=== PATIENT | female | born 1975 | race Asian ===

== ENCOUNTER 2019-04-24 20:18 | Emergency (ER) | payer BC ==
[~2019-04-24] VITALS: Ht 154.9 cm; Wt 65.8 kg
--- NOTE | 2019-04-24 20:25 | NUR ---
ED Nurse Note: Pt walked in c/o difficulty breathing since 2209. [place] and felt a sudden onset of diffculty breathing. Pt stated she feels dizzy, light headed since 1 week ago. Pt stated hx of vertigo and getting over cold.
[2019-04-24 20:32] VITALS: BP 171/97
[2019-04-24] MEDS ORDERED: DiphenhydrAMINE 50mg/ml Inj IVP ONE (21:00)
[2019-04-24 21:21] LABS: BASOPHILS % (AUTO) 1.8 % (0.0-2.0); EOSINOPHILS % (AUTO) 1.9 % (0.0-3.0); HEMOGLOBIN 11.8 G/DL (12.0-16.0); LYMPHOCYTES % (AUTO) 32.6 % (20.0-45.0); MEAN CORPUSCULAR VOLUME 75 FL (80-99); MONOCYTES % (AUTO) 6.8 % (1.0-10.0); NEUTROPHILS % (AUTO) 56.9 % (45.0-75.0); PLATELET COUNT 275 K/UL (150-450); RED BLOOD COUNT 5.08 M/UL (4.20-5.40); RED CELL DISTRIBUTION WIDTH 14.9 % (11.6-14.8); WHITE BLOOD COUNT 5.6 K/UL (4.8-10.8)
[2019-04-24] MEDS ORDERED: Solu-MEDROL 125mg Inj IVP ONE (21:30)
[2019-04-24 21:34] LABS: INR 0.9 (0.9-1.1)
[2019-04-24 21:45] LABS: ALANINE AMINOTRANSFERASE 19 U/L (12-78); ALBUMIN 3.9 G/DL (3.4-5.0); ALBUMIN/GLOBULIN RATIO 0.9 (1.0-2.7); ALKALINE PHOSPHATASE 41 U/L (46-116); ANION GAP 11 mmol/L (5-15); ASPARTATE AMINO TRANSFERASE 16 U/L (15-37); BILIRUBIN,TOTAL 0.2 MG/DL (0.2-1.0); BLOOD UREA NITROGEN 7 mg/dL (7-18); CALCIUM 8.6 MG/DL (8.5-10.1); CARBON DIOXIDE 26 MMOL/L (21-32); CHLORIDE 102 MMOL/L (98-107); CREATININE 0.7 MG/DL (0.55-1.30); SODIUM 140 MMOL/L (136-145)
[2019-04-24 21:49] VITALS: BP 165/94
[2019-04-24 21:50] LABS: POTASSIUM 2.7 MMOL/L (3.5-5.1)
--- NOTE | 2019-04-24 22:11 | Emergency Room Report ---
History of Present Illness General Chief Complaint: Dyspnea/Respdistress Source: Patient Present Illness HPI Patient is a 44-year-old female presents after increased generalized chills and dizziness. Patient had acute onset of symptoms. She reports having increased spinning sensation. She denies any recent trauma. She reports having some generalized body aches. She denies any severe neck discomfort. She denies any diarrhea. She had prior history of oral contraceptive use.She reports having a recent negative ultrasound Allergies: Coded Allergies: PENICILLINS (Verified Allergy, Unknown, 04/24/19) Patient History Past Medical History: see triage record Last Menstrual Period: 02/2019 Now: No Reviewed Nursing Documentation: PMH: Agreed; PSxH: Agreed Nursing Documentation-PMH Hx Hypertension: Yes Review of Systems All Other Systems: negative except mentioned in HPI Physical Exam Vital Signs Date Time Temp Pulse Resp B/P (MAP) Pulse Ox O2 Delivery O2 Flow Rate FiO2 04/24/19 20:21 98.6 87 16 171/97 (121) 100 Room Air Sp02 EP Interpretation: reviewed, normal General Appearance: normal inspection, well appearing, no apparent distress, alert, GCS 15, non-toxic Head: atraumatic ENT: hearing grossly normal, normal voice, other - erythema and swelling bilaterally to ears and face mild Neck: normal inspection, full range of motion, supple, no bony tend Respiratory: normal inspection, lungs clear, normal breath sounds, no respiratory distress, no retraction, no wheezing Cardiovascular #1: regular rate, rhythm, no edema Gastrointestinal: normal inspection, normal bowel sounds, non tender, soft, no guarding, no hernia Genitourinary: no CVA tenderness Musculoskeletal: normal inspection, back normal, normal range of motion Neurologic: normal inspection, alert, oriented x3, responsive, 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 Differential diagnosis include was not limited to myocardial injury, electrolyte abnormality , dehydration, allergic reaction among others. Because of complexity of patient 's case laboratory tests and imaging studies were ordered. Patient was noted to have some initial facial rash along with generalized body aches. The patient appears to have some symptoms consistent with mild allergic reaction. Laboratory testing was notable for low potassium. Patient was given IV fluids as well oral potassium. EKG showed an normal sinus rhythm with a rate of [address] or T wave changes.Patient was given antiallergy medication with improvement in her symptoms. Patient does appear to have some evidence of allergic reaction. Patient is given prescription for medications for symptomatic treatment. She is advised to return if worse. Labs Test 04/24/19 21:00 White Blood Count 5.6 K/UL (4.8-10.8) Red Blood Count 5.08 M/UL (4.20-5.40) Hemoglobin 11.8 G/DL (12.0-16.0) Hematocrit 38.0 % (37.0-47.0) Mean Corpuscular Volume 75 FL (80-99) Mean Corpuscular Hemoglobin 23.3 PG (27.0-31.0) Mean Corpuscular Hemoglobin Concent 31.1 G/DL (32.0-36.0) Red Cell Distribution Width 14.9 % (11.6-14.8) Platelet Count 275 K/UL (150-450) Mean Platelet Volume 7.3 FL (6.5-10.1) Neutrophils (%) (Auto) 56.9 % (45.0-75.0) Lymphocytes (%) (Auto) 32.6 % (20.0-45.0) Monocytes (%) (Auto) 6.8 % (1.0-10.0) Eosinophils (%) (Auto) 1.9 % (0.0-3.0) Basophils (%) (Auto) 1.8 % (0.0-2.0) Prothrombin Time 9.3 SEC (9.30-11.50) Prothromb Time International Ratio 0.9 (0.9-1.1) Activated Partial Thromboplast Time 25 SEC (23-33) Sodium Level 140 MMOL/L (136-145) Potassium Level 2.7 MMOL/L (3.5-5.1) Chloride Level 102 MMOL/L (98-107) Carbon Dioxide Level 26 MMOL/L (21-32) Anion Gap 11 mmol/L (5-15) Blood Urea Nitrogen 7 mg/dL (7-18) Creatinine 0.7 MG/DL (0.55-1.30) Estimat Glomerular Filtration Rate > 60 mL/min (>60) Glucose Level 96 MG/DL (74-106) Calcium Level 8.6 MG/DL (8.5-10.1) Total Bilirubin 0.2 MG/DL (0.2-1.0) Aspartate Amino Transf (AST/SGOT) 16 U/L (15-37) Alanine Aminotransferase (ALT/SGPT) 19 U/L (12-78) Alkaline Phosphatase 41 U/L (46-116) Troponin I 0.000 ng/mL (0.000-0.056) Pro-B-Type Natriuretic Peptide 66 pg/mL (0-125) Total Protein 8.2 G/DL (6.4-8.2) Albumin 3.9 G/DL (3.4-5.0) Globulin 4.3 g/dL Albumin/Globulin Ratio 0.9 (1.0-2.7) Lipase 267 U/L (73-393) Last Vital Signs Date Time Temp Pulse Resp B/P (MAP) Pulse Ox O2 Delivery O2 Flow Rate FiO2 04/24/19 21:49 97.3 102 16 165/94 96 Room Air Status: improved Disposition: HOME, SELF-CARE Condition: Stable Scripts Potassium Chloride (POTASSIUM CHLORIDE) 10 Meq Tab.er.prt 10 MEQ PO DAILY, #30 TAB Prov: Paul Cifuentes MD 04/24/19 Diphenhydramine Hcl* (BENADRYL*) 25 Mg Capsule 25 MG ORAL Q6H PRN for Itching, #30 CAP Prov: Paul Cifuentes MD 04/24/19 Prednisone* (PREDNISONE*) 20 Mg Tablet 40 MG ORAL DAILY, #10 TAB Prov: Paul Cifuentes MD 04/24/19 Referrals: NON PHYSICIAN (PCP) Paul Cifuentes MD Apr 24, 2019 22:10
[2019-04-24] MEDS ORDERED: PREDNISONE20 MG ORAL (22:27)
[2019-04-24] MEDS ORDERED: BENADRYL25 MG ORAL (22:27)
[2019-04-24] MEDS ORDERED: POTASSIUM CHLO10 ME2 PO (22:29)
[2019-04-24 22:44] VITALS: BP 167/98
--- NOTE | 2019-04-24 22:44 | NUR ---
ER DISCHARGE NOTE: Patient is cleared to be discharged per ERMD, pt is aox4, on room air, with stable vital signs. pt was given dc and prescription instructions, pt was able to verbalize understanding, pt id band and iv site removed without complications. pt is able to ambulate with steady gait. pt took all belongings.
--- NOTE | 2019-04-25 13:09 | Diagnostic Imaging Report ---
Indication: Shortness of breath Technique: One view of the chest Comparison: none Findings: Lungs and pleural spaces are clear. Heart size is normal. Impression: No acute process
--- NOTE | 2019-04-27 15:36 | Cardiology Report ---
APPROVED REPORT EKG Measurement Heart [id number] Normal sinus rhythm Normal ECG
== END 2019-04-24 22:44 | disposition home or self-care (01) ==
LOC: EMR 20:53
DX: T78.40XA Allergy, unspecified, initial encounter (principal); X58.XXXA Exposure to other specified factors, initial encounter; E87.6 Hypokalemia; I10 Essential (primary) hypertension; Z88.0 Allergy status to penicillin
CPT/HCPCS: 36415; 71045; 80053; 83690; 83880; 84443; 84484; 85025; 85379; 85610; 85730; 93005; 96374; 96375; 99284; J1200; J2930; J7040; J8499

== ENCOUNTER 2019-08-17 03:46 | Emergency (ER) | payer BC ==
[~2019-08-17] VITALS: Ht 152.4 cm; Wt 68.0 kg
[~2019-08-17 03:46] MED LIST: BENADRYL25 MG ORAL; POTASSIUM CHLO10 ME2 PO; PREDNISONE20 MG ORAL
[2019-08-17 04:00] VITALS: BP 159/107
--- NOTE | 2019-08-17 04:00 | NUR ---
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 Pt did take clonidine prior to ED arrival. Pt BP upon ED triage is 159/107. Pt denies BENNETT, CP or SOB, but reports dizziness. pt is aaox4, no respiratory distress noted. Will continue to monitor.
[2019-08-17] MEDS ORDERED: CATAPRES0.1 MG ORAL (04:02)
[2019-08-17] MEDS ORDERED: AMLODIPINE BES2.5 MG ORAL (04:02)
[2019-08-17] MEDS ORDERED: OMEPRAZOLE20 M2 ORAL (04:02)
[2019-08-17 04:44] LABS: BASOPHILS % (AUTO) 1.8 % (0.0-2.0); EOSINOPHILS % (AUTO) 2.2 % (0.0-3.0); HEMATOCRIT 38.7 % (37.0-47.0); HEMOGLOBIN 13.1 G/DL (12.0-16.0); LYMPHOCYTES % (AUTO) 32.5 % (20.0-45.0); MEAN CORPUSCULAR VOLUME 88 FL (80-99); MONOCYTES % (AUTO) 7.5 % (1.0-10.0); PLATELET COUNT 236 K/UL (150-450); RED BLOOD COUNT 4.39 M/UL (4.20-5.40); RED CELL DISTRIBUTION WIDTH 12.5 % (11.6-14.8); WHITE BLOOD COUNT 5.6 K/UL (4.8-10.8)
[2019-08-17 04:52] LABS: APPEARANCE,URINE CLEAR; BILIRUBIN, URINE NEGATIVE (NEGATIVE); COLOR,URINE PALE YELLOW; GLUCOSE, URINE (UA) NEGATIVE (NEGATIVE); KETONES,URINE NEGATIVE (NEGATIVE); LEUKOCYTE ESTERASE ,URINE NEGATIVE (NEGATIVE); NITRITE,URINE NEGATIVE (NEGATIVE); PH,URINE 7 (4.5-8.0); PROTEIN,URINE NEGATIVE (NEGATIVE); UROBILINOGEN,URINE NORMAL MG/DL (0.0-1.0)
[2019-08-17 04:56] LABS: ANION GAP 11 mmol/L (5-15); BLOOD UREA NITROGEN 9 mg/dL (7-18); CALCIUM 9.5 MG/DL (8.5-10.1); CARBON DIOXIDE 25 MMOL/L (21-32); CHLORIDE 106 MMOL/L (98-107); CREATININE 0.7 MG/DL (0.55-1.30); SODIUM 142 MMOL/L (136-145)
[2019-08-17 05:08] LABS: ALANINE AMINOTRANSFERASE 29 U/L (12-78); ALBUMIN 3.5 G/DL (3.4-5.0); ALBUMIN/GLOBULIN RATIO 0.9 (1.0-2.7); ALKALINE PHOSPHATASE 51 U/L (46-116); ASPARTATE AMINO TRANSFERASE 16 U/L (15-37); BILIRUBIN,TOTAL 0.1 MG/DL (0.2-1.0)
[2019-08-17] MEDS ORDERED: FAMOTIDINE20 MG ORAL (05:19)
[2019-08-17 05:25] VITALS: BP 168/86
--- NOTE | 2019-08-17 06:27 | Emergency Room Report ---
History of Present Illness General Chief Complaint: Hypertension Source: Patient Present Illness HPI 44-year-old female presents ED for evaluation of high blood pressure. States that she checked her blood pressure at home and it was high. Took clonidine x2. States she has hypertension and takes Norvasc normally. States she was prescribed clonidine recently by her PMD as her blood pressures were getting higher. Notes headache or blurry vision. Denies chest pain but describes intermittent shortness of breath. Denies alcohol or drug use. No other aggravating relieving factors. Denies any other associated symptoms Allergies: Coded Allergies: PENICILLINS (Verified Allergy, Unknown, 04/24/19) Patient History Past Medical History: HTN Past Surgical History: none Pertinent Family History: none Social History: Denies: smoking, alcohol use, drug use Last Menstrual Period: 08/01/19 Now: No Immunizations: UTD Reviewed Nursing Documentation: PMH: Agreed; PSxH: Agreed Nursing Documentation-PMH Past Medical History: No History, Except For Hx Hypertension: Yes Review of Systems All Other Systems: negative except mentioned in HPI Physical Exam Vital Signs Date Time Temp Pulse Resp B/P (MAP) Pulse Ox O2 Delivery O2 Flow Rate FiO2 08/17/19 03:56 98.1 72 14 159/107 (124) 97 Room Air Sp02 EP Interpretation: reviewed, normal General Appearance: no apparent distress, alert, GCS 15, non-toxic Head: normocephalic, atraumatic Eyes: bilateral eye normal inspection, bilateral eye PERRL ENT: hearing grossly normal, normal pharynx, no angioedema, normal voice Neck: full range of motion, supple/symm/no masses Respiratory: chest non-tender, lungs clear, normal breath sounds, speaking full sentences Cardiovascular #1: regular rate, rhythm, no edema Cardiovascular #2: 2+ carotid (R), 2+ carotid (L), 2+ radial (R), 2+ radial (L) , 2+ dorsalis pedis (R), 2+ dorsalis pedis (L) Gastrointestinal: normal bowel sounds, non tender, soft, non-distended, no guarding, no rebound Rectal: deferred Genitourinary: normal inspection, no CVA tenderness Musculoskeletal: back normal, normal range of motion, gait/station normal, non- tender Neurologic: alert, motor strength/tone normal, oriented x3, sensory intact, responsive, speech normal Psychiatric: judgement/insight normal, memory normal, mood/affect normal, no suicidal/homicidal ideation Reflexes: 3+ bicep (R), 3+ bicep (L), 3+ tricep (R), 3+ tricep (L), 3+ knee (R) , 3+ knee (L) Lymphatic: no adenopathy Medical Decision Making Diagnostic Impression: Primary Impression: Gastritis Qualified Codes: K29.00 - Acute gastritis without bleeding Additional Impression: Hypertension Qualified Codes: I10 - Essential (primary) hypertension ER Course Hospital Course 44 yo F presents to ED c/o high BP, SOB Differential diagnoses include: hypertensive urgency, hypertensive emergency, arrythmia, PA/ACS Clinical course Patient placed on stretcher. After initial history and physical I ordered labs , EKG, chest x-ray. labs reviewed- all electrolytes normal, troponins negative, no leukocytosis, hemoglobin/hematocrit stable EKG - sinus bradycardia no acute ischemic changes interpreted by me Chest x-ray-no cardiomegaly, no rib fracture, no pneumothorax, no acute process During ED course patient's BP is slowly improving. I discussed findings with patient. Labs unremarkable. Exam within normal limits. Will discharge to home. I recommend closely tracking BP and documenting how anytime she requires clonidine. I explained that if she continues to require it on a regular basis she should discuss changing her BP med's with the PMD. She agrees. Safe for discharge for close outpatient follow-up I. I feel this is a highly complex case requiring extensive working including EKG/Rhythm strip, Xray/CT/US, Blood/urine lab work, repeat exams while in ED, and administration of strong opiates/narcotics for pain control, admission to hospital or close patient follow up. Diagnosis - hypertension, gastritis Stable and discharged to home with Rx Pepcid. Instructed to followup with PMD. Return to ED if symptoms recur or worsen Labs Test 08/17/19 04:20 White Blood Count 5.6 K/UL (4.8-10.8) Red Blood Count 4.39 M/UL (4.20-5.40) Hemoglobin 13.1 G/DL (12.0-16.0) Hematocrit 38.7 % (37.0-47.0) Mean Corpuscular Volume 88 FL (80-99) Mean Corpuscular Hemoglobin 29.9 PG (27.0-31.0) Mean Corpuscular Hemoglobin Concent 33.9 G/DL (32.0-36.0) Red Cell Distribution Width 12.5 % (11.6-14.8) Platelet Count 236 K/UL (150-450) Mean Platelet Volume 7.5 FL (6.5-10.1) Neutrophils (%) (Auto) 56.0 % (45.0-75.0) Lymphocytes (%) (Auto) 32.5 % (20.0-45.0) Monocytes (%) (Auto) 7.5 % (1.0-10.0) Eosinophils (%) (Auto) 2.2 % (0.0-3.0) Basophils (%) (Auto) 1.8 % (0.0-2.0) Urine Color Pale yellow Urine Appearance Clear Urine pH 7 (4.5-8.0) Urine Specific [place] 1.010 (1.005-1.035) Urine Protein Negative (NEGATIVE) Urine Glucose (UA) Negative (NEGATIVE) Urine Ketones Negative (NEGATIVE) Urine Blood 1+ (NEGATIVE) Urine Nitrite Negative (NEGATIVE) Urine Bilirubin Negative (NEGATIVE) Urine Urobilinogen Normal MG/DL (0.0-1.0) Urine Leukocyte Esterase Negative (NEGATIVE) Urine RBC 0-2 /HPF (0 - 2) Urine WBC 0-2 /HPF (0 - 2) Urine Squamous Epithelial Cells Occasional /LPF Urine Bacteria Occasional /HPF (NONE) Urine HCG, Qualitative Negative (NEGATIVE) Sodium Level 142 MMOL/L (136-145) Potassium Level 4.0 MMOL/L (3.5-5.1) Chloride Level 106 MMOL/L (98-107) Carbon Dioxide Level 25 MMOL/L (21-32) Anion Gap 11 mmol/L (5-15) Blood Urea Nitrogen 9 mg/dL (7-18) Creatinine 0.7 MG/DL (0.55-1.30) Estimat Glomerular Filtration Rate > 60 mL/min (>60) Glucose Level 123 MG/DL (74-106) Calcium Level 9.5 MG/DL (8.5-10.1) Total Bilirubin 0.1 MG/DL (0.2-1.0) Aspartate Amino Transf (AST/SGOT) 16 U/L (15-37) Alanine Aminotransferase (ALT/SGPT) 29 U/L (12-78) Alkaline Phosphatase 51 U/L (46-116) Troponin I 0.000 ng/mL (0.000-0.056) Pro-B-Type Natriuretic Peptide 233 pg/mL (0-125) Total Protein 7.5 G/DL (6.4-8.2) Albumin 3.5 G/DL (3.4-5.0) Globulin 4.0 g/dL Albumin/Globulin Ratio 0.9 (1.0-2.7) Lipase 300 U/L (73-393) EKG Diagnostic Results Rate: bradycardiac Rhythm: NSR ST Segments: no acute changes ASA given to the pt in ED: No Rhythm Strip Diag. Results EP Interpretation: yes Rhythm: NSR, no PVC's, no ectopy Chest X-Ray Diagnostic Results Chest X-Ray Diagnostic Results : Chest X-Ray Ordered: Yes # of Views/Limited/Complete: 1 View Indication: Chest Pain EP Interpretation: Yes Interpretation: no consolidation, no effusion, no pneumothorax, no acute cardiopulmonary disease Impression: No acute disease Electronically Signed by: Electronically signed by El Aviles MD Last Vital Signs Date Time Temp Pulse Resp B/P (MAP) Pulse Ox O2 Delivery O2 Flow Rate FiO2 08/17/19 05:25 98.1 75 16 168/86 99 Room Air Status: improved Disposition: HOME, SELF-CARE Condition: Stable Scripts Famotidine* (Pepcid 20mg tablet*) 20 Mg Tablet 20 MG ORAL DAILY, #30 TAB 0 Refills Prov: El Aviles MD 08/17/19 Patient Instructions: Hypertension, [id number] El Aviles MD Aug 17, 2019 06:27
--- NOTE | 2019-08-17 10:24 | Diagnostic Imaging Report ---
EXAM: XR Chest, 1 View CLINICAL HISTORY: CP TECHNIQUE: Frontal view of the chest. COMPARISON: Chest radiograph on 04/24/2019 FINDINGS: Hardware: None. Lungs/pleura: Low lung volumes with elevation of the right hemidiaphragm. Bibasilar atelectasis. No pleural effusion or pneumothorax. Heart/mediastinum: Mild enlargement of the cardiac silhouette which may be accentuated by low lung volumes. Soft tissues: Unremarkable. Bones: No acute fracture. Upper abdomen: Normal. IMPRESSION: Bibasilar atelectasis. No acute disease identified.
== END 2019-08-17 05:25 | disposition home or self-care (01) ==
LOC: EMR 04:30
DX: I10 Essential (primary) hypertension (principal); K29.00 Acute gastritis without bleeding; Z88.0 Allergy status to penicillin
CPT/HCPCS: 36415; 71045; 80053; 81003; 81025; 83690; 83880; 84484; 85025; 93005; 96361; 96374; 99284; J7030; S0028

== ENCOUNTER 2020-04-15 23:37 | Inpatient (IN) | payer BC ==
[~2020-04-15] VITALS: Ht 152.4 cm; Wt 65.9 kg
[~2020-04-15 23:37] MED LIST changes: +AMLODIPINE BES2.5 MG ORAL; +CATAPRES0.1 MG ORAL; +FAMOTIDINE20 MG ORAL; +OMEPRAZOLE20 M2 ORAL
[2020-04-15 23:47] VITALS: BP 153/84
--- NOTE | 2020-04-15 23:53 | Emergency Room Report ---
History of Present Illness General Chief Complaint: Abdominal Pain Source: Patient Present Illness HPI Disclaimer: Please note that this report is being documented using [employer] technology. This can lead to erroneous entry secondary to incorrect interpretation by the dictating instrument. HPI: 45-year-old female history of gastritis presents for evaluation of epigastric pain. Symptoms began approximately 5 PM. Patient was eating soup and rice. Reports a burning in the epigastrium does not radiate. Minimal tenderness in the right and left upper quadrant. One episode of vomiting that was nonbloody and nonbilious. Denies pain in the lower quadrants. She is currently experiencing menses but no significant cramping. Denies dysuria hematuria. Denies flank pain. Denies fever, chills, chest pain, shortness of breath, cough, URI symptoms or other changes in her health. She states she had a abdominal ultrasound 1 month ago showing cholelithiasis and solitary stone in the kidney. Denies history of abdominal surgery. Took a bicarbonate tablet prior to arrival without significant improvement. 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 EOMI. Cardiovascular: RRR. S1 and S2 normal. No murmur appreciated Resp: Normal work of breathing. No cough, wheezing or crackles appreciated Abdomen: Abdomen is soft, nondistended. Tender palpation in the epigastrium. No significant tenderness in the right or left upper quadrants. Negative Rodriguez's. No masses and no rebound. No periumbilical tenderness or tenderness in lower quadrants. No CVA tenderness. Skin: Intact. No abrasions, laceration or rash over the exposed skin MSK: Normal tone and bulk. Moving all extremities. No obvious deformity. Neuro: Awake and alert. Mentating appropriately. Procedures Critical Care Time Critical Care Time Total critical care time: Approximately 45 minutes Due to a high probability of clinically significant, life threatening deterioration, the patient required the highest level of preparedness to intervene emergently and I personally spent this critical care time directly and personally managing the patient. This critical care time included obtaining a history, examining the patient, pulse oximetry, ordering and reviewing studies, ordering treatments, evaluating response to treatment and updating management plan as needed, frequent reassessment and discussion with other providers as well as arranging for ultimate disposition. This critical to care time was performed to assess and manage the high probability of life-threatening deterioration that could result in multiorgan failure. This critical care time is separate from the separately billable procedures and treating other patients. Medical Decision Making Diagnostic Impression: Primary Impression: Cystitis Additional Impressions: Cholecystitis Hypokalemia ER Course Is a 45-year-old female presenting for evaluation of epigastric abdominal burning beginning approximately 5 PM. History of gastritis and cholelithiasis. Blood work showed hypokalemia though renal hepatic function were within normal limits. No evidence of pancreatitis. Patient was given IV and oral potassium. Urinalysis concerning for acute urinary tract infection. She received ceftriaxone. Patient had initial relief after pain medication antiemetics but then symptoms returned. A CT was obtained showing gallbladder wall thickening and pericholecystic fluid consistent with acalculous cholecystitis. Ultrasound did show gallstones and confirmed pericholecystic fluid and gallbladder wall thickening consistent with cholecystitis. CBD dilation was also noted. Patient will be admitted to panel physician, Dr. Golden, for further management of acute cholecystitis. She received potassium will continue to receive IV fluids. Kept n.p.o. for possible surgery. Laboratory Tests Test 04/15/20 23:55 04/16/20 00:20 White Blood Count 9.4 K/UL (4.8-10.8) Red Blood Count 5.20 M/UL (4.20-5.40) Hemoglobin 14.6 G/DL (12.0-16.0) Hematocrit 44.1 % (37.0-47.0) Mean Corpuscular Volume 85 FL (80-99) Mean Corpuscular Hemoglobin 28.1 PG (27.0-31.0) Mean Corpuscular Hemoglobin Concent 33.1 G/DL (32.0-36.0) Red Cell Distribution Width 18.8 % (11.6-14.8) H Platelet Count 258 K/UL (150-450) Mean Platelet Volume 7.7 FL (6.5-10.1) Neutrophils (%) (Auto) 77.4 % (45.0-75.0) H Lymphocytes (%) (Auto) 16.4 % (20.0-45.0) L Monocytes (%) (Auto) 4.6 % (1.0-10.0) Eosinophils (%) (Auto) 0.8 % (0.0-3.0) Basophils (%) (Auto) 0.9 % (0.0-2.0) Sodium Level 139 MMOL/L (136-145) Potassium Level 2.8 MMOL/L (3.5-5.1) L Chloride Level 99 MMOL/L (98-107) Carbon Dioxide Level 27 MMOL/L (21-32) Anion Gap 13 mmol/L (5-15) Blood Urea Nitrogen 10 mg/dL (7-18) Creatinine 1.0 MG/DL (0.55-1.30) Estimated Glomerular Filtration Rate 59.7 mL/min (>60) Glucose Level 138 MG/DL (74-106) H Calcium Level 9.1 MG/DL (8.5-10.1) Total Bilirubin 0.3 MG/DL (0.2-1.0) Aspartate Amino Transferase (AST) 18 U/L (15-37) Alanine Aminotransferase (ALT) 21 U/L (12-78) Alkaline Phosphatase 51 U/L (46-116) Total Protein 9.2 G/DL (6.4-8.2) H Albumin 4.6 G/DL (3.4-5.0) Globulin 4.6 g/dL Albumin/Globulin Ratio 1.0 (1.0-2.7) Lipase 237 U/L (73-393) Urine Color Red Urine Appearance Cloudy Urine pH 8 (4.5-8.0) Urine Specific [place] 1.010 (1.005-1.035) Urine Protein 3+ (NEGATIVE) H Urine Glucose (UA) 2+ (NEGATIVE) H Urine Ketones 3+ (NEGATIVE) H Urine Blood 5+ (NEGATIVE) H Urine Nitrite Negative (NEGATIVE) Urine Bilirubin Negative (NEGATIVE) Urine Urobilinogen Normal MG/DL (0.0-1.0) Urine Leukocyte Esterase 2+ (NEGATIVE) H Urine RBC Tntc /HPF (0 - 2) H Urine WBC 5-10 /HPF (0 - 2) H Urine Squamous Epithelial Cells Few /LPF (NONE/OCC) Urine Bacteria Few /HPF (NONE) CT/MRI/US Diagnostic Results CT/MRI/US Diagnostic Results : Impression US ABD IMPRESSION: 1. The gallbladder is mildly distended with a bladder wall thickening measuring 3.7 mm, stones and sludge. There is trace pericholecystic fluid. Findings are consistent with acute cholecystitis. 2. The common bile duct is mildly dilated measuring 6.2 mm. Choledocholithiasis cannot be excluded. Radiologist: Benedicto Argueta MD Electronically Signed: 04/16/20 05:04 Study ready at 04:56 and initial results transmitted at 05:04 Final Report EXAM: CT Abdomen and Pelvis With Intravenous Contrast CLINICAL HISTORY: ABD PAIN TECHNIQUE: Axial computed tomography images of the abdomen and pelvis with intravenous contrast. CTDI is 6.2 mGy and DLP is 312.3 mGy-cm. One or more of the following dose reduction techniques were used: automated exposure control, adjustment of the mA and/or kV according to patient size, use of iterative reconstruction technique. COMPARISON: No relevant prior studies available. FINDINGS: Lung bases: Unremarkable. No mass. No consolidation. ABDOMEN: Liver: Unremarkable. No mass. Gallbladder and bile ducts: There is gallbladder wall thickening and peric holecystic fluid. No radiopaque stones. There is extrahepatic biliary ductal dilatation with the common duct measuring up to 10 mm. No definite evidence of choledocholithiasis. Pancreas: Unremarkable. No mass. No ductal dilation. Spleen: Unremarkable. No splenomegaly. Adrenals: Unremarkable. No mass. Kidneys and ureters: Unremarkable. No solid mass. No hydronephrosis. Stomach and bowel: Unremarkable. No obstruction. No mucosal thickening. PELVIS: Appendix: Normal appendix. Bladder: Mild bladder wall thickening with reticulation, correlate for cystitis. Reproductive: Nonspecific heterogeneous enlargement of the uterus. ABDOMEN and PELVIS: Intraperitoneal space: Unremarkable. No free air. No significant fluid collection. Bones/joints: No acute fracture. No dislocation. Soft tissues: Unremarkable. Vasculature: Unremarkable. No abdominal aortic aneurysm. Lymph nodes: Unremarkable. No enlarged lymph nodes. IMPRESSION: A calculus cholecystitis with extrahepatic biliary ductal dilatation. Recommend MRCP to evaluate for choledocholithiasis. Right upper quadrant ultrasound will not likely provide additional information with the exception it may identify non-radiopaque stones. Mild bladder wall thickening, correlate for cystitis. Radiologist: Armando Ramírez DO Electronically Signed: 04/16/20 03:12 Study ready at 03:04 and initial results transmitted at 03:12 Last Vital Signs Date Time Temp Pulse Resp B/P (MAP) Pulse Ox O2 Delivery O2 Flow Rate FiO2 04/15/20 23:42 97.9 73 18 158/97 (117) 99 Room Air Disposition: ADMITTED INPATIENT Condition: Serious Arvind Cordero MD Apr 15, 2020 23:52
[2020-04-16] VITALS (17 sets, daily range): BP systolic 120–158; BP diastolic 81–100
[2020-04-16] MEDS ORDERED: Dicyclomine HCl 10mg/5ml oral soln ORAL ONE
[2020-04-16] MEDS ORDERED: Mylanta II UD 30ml ORAL ONE
[2020-04-16] MEDS ORDERED: Lidocaine 2% Visc 15ml soln ORAL ONE
[2020-04-16] MEDS ORDERED: Hydromorphone 0.5mg/0.5ml inj IVP ONE (00:15)
[2020-04-16 00:35] LABS: BASOPHILS % (AUTO) 0.9 % (0.0-2.0); EOSINOPHILS % (AUTO) 0.8 % (0.0-3.0); HEMATOCRIT 44.1 % (37.0-47.0); HEMOGLOBIN 14.6 G/DL (12.0-16.0); LYMPHOCYTES % (AUTO) 16.4 % (20.0-45.0); MEAN CORPUSCULAR VOLUME 85 FL (80-99); MONOCYTES % (AUTO) 4.6 % (1.0-10.0); NEUTROPHILS % (AUTO) 77.4 % (45.0-75.0); PLATELET COUNT 258 K/UL (150-450); RED CELL DISTRIBUTION WIDTH 18.8 % (11.6-14.8); WHITE BLOOD COUNT 9.4 K/UL (4.8-10.8)
[2020-04-16 00:35] LABS: APPEARANCE,URINE CLOUDY; BILIRUBIN, URINE NEGATIVE (NEGATIVE); COLOR,URINE RED; GLUCOSE, URINE (UA) 2+ (NEGATIVE); KETONES,URINE 3+ (NEGATIVE); LEUKOCYTE ESTERASE ,URINE 2+ (NEGATIVE); NITRITE,URINE NEGATIVE (NEGATIVE); PH,URINE 8 (4.5-8.0); PROTEIN,URINE 3+ (NEGATIVE); UROBILINOGEN,URINE NORMAL MG/DL (0.0-1.0)
[2020-04-16 00:46] LABS: ALBUMIN 4.6 G/DL (3.4-5.0); BILIRUBIN,TOTAL 0.3 MG/DL (0.2-1.0); CALCIUM 9.1 MG/DL (8.5-10.1); POTASSIUM 2.8 MMOL/L (3.5-5.1)
[2020-04-16] MEDS ORDERED: Morphine Sulfate 4mg/ml Inj (IV USE ONLY) IVP ONE ×2 (01:00→03:30)
[2020-04-16] MEDS ORDERED: Omnipaque-300 100ml vial INJ PRN (02:15)
[2020-04-16] MEDS ORDERED: cefTRIAXone 1 GM in NS 55 ML IVPB ONE (02:15)
--- NOTE | 2020-04-16 03:13 | Diagnostic Imaging Report ---
EXAM: CT Abdomen and Pelvis With Intravenous Contrast CLINICAL HISTORY: ABD PAIN TECHNIQUE: Axial computed tomography images of the abdomen and pelvis with intravenous contrast. CTDI is 6.2 mGy and DLP is 312.3 mGy-cm. One or more of the following dose reduction techniques were used: automated exposure control, adjustment of the mA and/or kV according to patient size, use of iterative reconstruction technique. COMPARISON: No relevant prior studies available. FINDINGS: Lung bases: Unremarkable. No mass. No consolidation. ABDOMEN: Liver: Unremarkable. No mass. Gallbladder and bile ducts: There is gallbladder wall thickening and pericholecystic fluid. No radiopaque stones. There is extrahepatic biliary ductal dilatation with the common duct measuring up to 10 mm. No definite evidence of choledocholithiasis. Pancreas: Unremarkable. No mass. No ductal dilation. Spleen: Unremarkable. No splenomegaly. Adrenals: Unremarkable. No mass. Kidneys and ureters: Unremarkable. No solid mass. No hydronephrosis. Stomach and bowel: Unremarkable. No obstruction. No mucosal thickening. PELVIS: Appendix: Normal appendix. Bladder: Mild bladder wall thickening with reticulation, correlate for cystitis. Reproductive: Nonspecific heterogeneous enlargement of the uterus. ABDOMEN and PELVIS: Intraperitoneal space: Unremarkable. No free air. No significant fluid collection. Bones/joints: No acute fracture. No dislocation. Soft tissues: Unremarkable. Vasculature: Unremarkable. No abdominal aortic aneurysm. Lymph nodes: Unremarkable. No enlarged lymph nodes. IMPRESSION: A calculus cholecystitis with extrahepatic biliary ductal dilatation. Recommend MRCP to evaluate for choledocholithiasis. Right upper quadrant ultrasound will not likely provide additional information with the exception it may identify non-radiopaque stones. Mild bladder wall thickening, correlate for cystitis.
[2020-04-16] MEDS ORDERED: Morphine Sulfate 4mg/ml Inj (IV USE ONLY) IVP PRN ×2 (05:00→13:15)
[2020-04-16] MEDS ORDERED: Morphine Sulfate 2mg/ml Inj(IV/IM USE ONLY) IVP PRN ×4 (05:00→13:15)
--- NOTE | 2020-04-16 05:05 | Diagnostic Imaging Report ---
EXAM: US Abdomen Limited, Right Upper Quadrant CLINICAL HISTORY: ABD PAIN TECHNIQUE: Real-time ultrasound of the right upper quadrant with image documentation. COMPARISON: CT performed the same day. FINDINGS: Liver: Unremarkable. No mass. No intrahepatic bile duct dilation. Gallbladder: The gallbladder is mildly distended with a bladder wall thickening measuring 3.7 mm, stones and sludge. There is trace pericholecystic fluid. Findings are consistent with acute cholecystitis. Common bile duct: The common bile duct is mildly dilated measuring 6.2 mm. Choledocholithiasis cannot be excluded. Pancreas: Unremarkable as visualized. Right kidney: Unremarkable. No stones. No solid mass. No hydronephrosis. IMPRESSION: 1. The gallbladder is mildly distended with a bladder wall thickening measuring 3.7 mm, stones and sludge. There is trace pericholecystic fluid. Findings are consistent with acute cholecystitis. 2. The common bile duct is mildly dilated measuring 6.2 mm. Choledocholithiasis cannot be excluded.
[2020-04-16] MEDS ORDERED: Acetaminophen 650 MG SUPP RECTAL PRN (06:15)
[2020-04-16] MEDS ORDERED: D5 1/2NS w/KCl 40meq 1000ml 1,000 ML IV SCH (08:00)
[2020-04-16] MEDS: Cefepime HCl 1 GM in D5W 55 ML IVPB SCH ×2 (09:43→22:01)
--- NOTE | 2020-04-16 10:17 | Diagnostic Imaging Report ---
Indication: Cough Technique: One view of the chest Comparison: 08/17/2019 Findings: Lungs and pleural spaces are clear. Heart size is normal. No significant change Impression: No acute process
--- NOTE | 2020-04-16 10:19 | Pre-Procedure Note/Attestation ---
Pre-Procedure Note/Attestation Complete Prior to Procedure Procedure Narrative: laparoscopic cholecystectomy possible open Indications for Procedure Pre-Operative Diagnosis: acute cholecystitis Attestation I attest that I discussed the nature of the procedure; its benefits; risks and complications; and alternatives (and the risks and benefits of such alternatives), prior to the procedure, with the patient (or the patient's legal electroplating sales representative). I attest that, if there was a reasonable possibility of needing a blood transfusion, the patient (or the patient's legal electroplating sales representative) was given the [facility] standardized written summary, pursuant to the [employer] Jameel Blood Safety Act ([place] Health and Safety Code # 1645, as amended). I attest that I re-evaluated the patient just prior to the surgery and that there has been no change in the patient's H&P, except as documented below: Eliseo De Jesus Apr 16, 2020 10:19
[2020-04-16] MEDS ORDERED: Iothalamate Meglumine 60% 50ML INJ ONE (11:11)
[2020-04-16] MEDS ORDERED: Lidocaine 1% 10mg/ml/EPI 0.01mg/ml 30ml INJ ONE (11:11)
[2020-04-16] MEDS ORDERED: Bupivacaine 0.25% Inj 30ml INJ ONE (11:11)
[2020-04-16] MEDS ORDERED: Succinylcholine 20mg/ml 10ml vial ONE (11:14)
[2020-04-16] MEDS ORDERED: Rocuronium Bromide 50mg/5ml Inj IV ONE (11:14)
[2020-04-16] MEDS ORDERED: Midazolam 2mg/2ml Inj ONE (11:23)
[2020-04-16] MEDS ORDERED: fentaNYL 100 mcg/2 mL IV ONE (11:23)
[2020-04-16] MEDS ORDERED: Lidocaine 1% MPF 10mg/ml 5ml ONE (11:24)
[2020-04-16] MEDS ORDERED: NS Irrig 2000ml IRRIG ONE ×2 (11:45→12:09)
[2020-04-16] MEDS ORDERED: Sterile Water Irrig 1000ml IRRIG ONE (12:00)
[2020-04-16] MEDS ORDERED: LR 1000ml ONE (12:00)
--- NOTE | 2020-04-16 12:13 | Diagnostic Imaging Report ---
Indication: Abdominal pain, abnormal CT and ultrasound, history of gallstones Technique: Coronal and axial single shot fast spin-echo breath-hold, axial T2 FRFSE, 2-D thick slab MRCP, AXIAL 2-D FIESTA fat saturated, axial 3-D dual echo breath-hold, water weighted axial LAVA FLEX, revealed 3-D MRCP images were obtained of the abdomen. MIP reconstructions were generated of the bile ducts Comparison: none Findings: Small filling defects within the gallbladder lumen are consistent with gallstones. There is a calculus within the gallbladder neck at the cystic duct orifice. There is a equivocal minimal gallbladder wall thickening. There is some infiltration and possibly fluid in the pericholecystic fat as well as some fluid within the adjacent fascial planes. The common bile duct is mildly dilated, measuring up to 10 mm in diameter. No filling defects are seen within the bile ducts. No pancreatic head mass is demonstrated. The liver, pancreas, spleen, adrenals, kidneys are unremarkable. There may be uterine fibroids. Impression: Cholelithiasis. There is evidence of pericholecystic inflammation, raising concern for acute cholecystitis. Consider hepatobiliary nuclear scan for further evaluation. Ectatic extrahepatic and central intrahepatic bile ducts, without evidence of downstream obstructive pathology. Significance uncertain. Correlate with liver function tests Possible uterine fibroids, not well-demonstrated if real
--- NOTE | 2020-04-16 12:15 | History and Physical Report ---
DATE OF ADMISSION: 04/16/2020 CHIEF COMPLAINT AND REASON FOR HOSPITALIZATION: The patient was admitted with cholecystitis. HISTORY OF PRESENT ILLNESS: The patient is a 45-year-old lady, who has had on and off epigastric pain for the last four to five days. She had intermittent nausea and vomiting, mild. No hematochezia or melena. There is a history of hypertension and endometriosis. Imaging in the emergency room was consistent with gallbladder wall thickening and cholecystitis and concern for dilated ducts. ALLERGIES: Penicillin in the past for some difficulty with breathing severe distress. PAST SURGICAL HISTORY: D and C. HABITS: She is a nonsmoker and nondrinker. No use of illicit drugs. SOCIAL HISTORY: She is with children ages 16 to 21, four children. 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 Exposure to COVID, none known. SYSTEM REVIEW: HEAD, EYES, EARS, NOSE, AND THROAT: Vision and hearing is good. ENDOCRINE: No known diabetes or thyroid disease. PULMONARY: No asthma, TB or chronic cough. CARDIAC: No angina, NM or palpitations. GASTROINTESTINAL: History of some heartburn and current pains as above. GENITOURINARY: No dysuria or hematuria. There is a history of endometriosis and is on control pills to suppress heavy menses. MUSCULOSKELETAL: No history of chronic joint pain. NEUROLOGIC: No CVA, syncope or seizures. HOME MEDICATIONS: Amlodipine 2.5 mg half a pill daily, omeprazole 20 mg daily, and a control pill. PHYSICAL EXAMINATION: GENERAL: The patient is alert lady, in no acute distress. VITAL SIGNS: BMI 28.3, temperature 98.2, pulse 74, respirations 18, blood pressure 157/94. HEAD, EYES, EARS, NOSE, AND THROAT: Sclerae are nonicteric. Ocular motions intact in all directions. Oral mucosa moist. NECK: No adenopathy or thyroid enlargement. LUNGS: Clear. HEART: Rhythm is regular. No murmur, gallop or rub. ABDOMEN: Soft. Liver and spleen not palpable. There is very mild epigastric pain. No guarding. No rebound. EXTREMITIES: No edema, cyanosis or clubbing. LABORATORY DATA: All laboratories are reviewed. IMPRESSION: 1. Acute cholecystitis. 2. Dilated duct concerning for choledocholithiasis. 3. History of endometriosis. 4. History of hypertension. PLAN: The case was discussed with Dr. De Jesus and in view of the imaging and clinical findings, she is arranging for cholecystectomy. All orders are reviewed in detail. Robinson Golden M.D. DR: RYAN JOB#: [id number] CC:
[2020-04-16] MEDS ORDERED: Metoprolol Tartrate 5mg/5ml Inj ONE (12:34)
[2020-04-16] MEDS ORDERED: Morphine Sulfate 10mg/ml Inj ONE (12:34)
[2020-04-16] MEDS ORDERED: Sodium Chloride 10ml vial INJ ONE (12:35)
[2020-04-16] MEDS ORDERED: Neostigmine 1mg/ml 10ml Inj ONE (12:35)
[2020-04-16] MEDS ORDERED: Ketorolac 30mg Inj ONE (12:35)
[2020-04-16] MEDS ORDERED: Glycopyrrolate 0.2mg/ml 1ml Vial ONE (12:35)
[2020-04-16] MEDS ORDERED: LR 1000ml 1,000 ML IVLG SCH (12:45)
[2020-04-16] MEDS ORDERED: Meperidine 25mg/1ml Inj (FOR RIGORS ONLY) IV PRN (12:45)
[2020-04-16] MEDS ORDERED: Metoclopramide 10mg/2ml Inj IVP PRN (12:45)
[2020-04-16] MEDS ORDERED: Ketorolac 30mg Inj IV PRN (12:45)
[2020-04-16] MEDS ORDERED: DiphenhydrAMINE 50mg/ml Inj IVP PRN (12:45)
--- NOTE | 2020-04-16 12:45 | Anethesia Preoperative Eval ---
Anesthesia Pre-op PMH/ROS General Date of Evaluation: Apr 16, 2020 Time of Evaluation: 11:50 Anesthesiologist: Mi ASA Score: ASA 2 Mallampati Score Class I : Soft palate, uvula, fauces, pillars visible Class II: Soft palate, uvula, fauces visible Class III: Soft palate, base of uvula visible Class IV: Only hard plate visible Mallampati Classification: Class II Surgeon: Delta Diagnosis: Acute cholecystitis Surgical Procedure: Laparoscopic cholecystectomy Anesthesia History: none Family History: no anesthesia problems Allergies: Coded Allergies: PENICILLINS (Verified Allergy, Unknown, 04/24/19) Medications: see eMAR Patient NPO?: Yes Past Medical History Cardiovascular: Reports: HTN; Denies: CAD, CO, valve dz, arrhythmia, other Pulmonary: Denies: asthma, COPD, [place], other Gastrointestinal/Genitourinary: Reports: GERD; Denies: CRI, ESRD, other Neurologic/Psychiatric: Denies: dementia, CVA, depression/anxiety, TIA, other Endocrine: Denies: DM, hypothyroidism, steroids, other HEENT: Denies: cataract (L), cataract (R), glaucoma, HOOPA (L), HOOPA (R), other Hematology/Immune: Denies: anemia, DVT, bleeding disorder, other Musculoskeletal/Integumentary: Denies: OA, RA, DJD, DDD, edema, other PMH Narrative: as above PSxH Narrative: None Anesthesia Pre-op Phys. Exam Physician Exam Last Vital Signs Date Time Temp Pulse Resp B/P (MAP) Pulse Ox O2 Delivery O2 Flow Rate FiO2 04/16/20 09:00 Room Air 04/16/20 08:00 98.3 74 18 157/94 (115) 99 Constitutional: NAD Neurologic: CN 2-12 intact Cardiovascular: RRR, no M/R/G Respiratory: CTA Gastrointestinal: other - some tenderness in epigastric area Airway Exam Mallampati Score: Class II MO: full Neck: short ROM: full Teeth: missing Dentures: no upper, no lower Anesthesia Pre-op A/P Labs Hematology Test 04/15/20 23:55 White Blood Count 9.4 K/UL (4.8-10.8) Red Blood Count 5.20 M/UL (4.20-5.40) Hemoglobin 14.6 G/DL (12.0-16.0) Hematocrit 44.1 % (37.0-47.0) Mean Corpuscular Volume 85 FL (80-99) Mean Corpuscular Hemoglobin 28.1 PG (27.0-31.0) Mean Corpuscular Hemoglobin Concent 33.1 G/DL (32.0-36.0) Red Cell Distribution Width 18.8 % (11.6-14.8) H Platelet Count 258 K/UL (150-450) Mean Platelet Volume 7.7 FL (6.5-10.1) Neutrophils (%) (Auto) 77.4 % (45.0-75.0) H Lymphocytes (%) (Auto) 16.4 % (20.0-45.0) L Monocytes (%) (Auto) 4.6 % (1.0-10.0) Eosinophils (%) (Auto) 0.8 % (0.0-3.0) Basophils (%) (Auto) 0.9 % (0.0-2.0) Chemistry Test 04/15/20 23:55 Sodium Level 139 MMOL/L (136-145) Potassium Level 2.8 MMOL/L (3.5-5.1) L Chloride Level 99 MMOL/L (98-107) Carbon Dioxide Level 27 MMOL/L (21-32) Anion Gap 13 mmol/L (5-15) Blood Urea Nitrogen 10 mg/dL (7-18) Creatinine 1.0 MG/DL (0.55-1.30) Estimat Glomerular Filtration Rate 59.7 mL/min (>60) Glucose Level 138 MG/DL (74-106) H Calcium Level 9.1 MG/DL (8.5-10.1) Total Bilirubin 0.3 MG/DL (0.2-1.0) Aspartate Amino Transf (AST/SGOT) 18 U/L (15-37) Alanine Aminotransferase (ALT/SGPT) 21 U/L (12-78) Alkaline Phosphatase 51 U/L (46-116) Total Protein 9.2 G/DL (6.4-8.2) H Albumin 4.6 G/DL (3.4-5.0) Globulin 4.6 g/dL Albumin/Globulin Ratio 1.0 (1.0-2.7) Lipase 237 U/L (73-393) Studies Pre-op Studies: EKG - NSR Risk Assessment & Plan Assessment: ASA 2 Plan: GA with ETT Status Change Before Surgery: No Pre-Antibiotics Drug: as scheduled Venkata Stark MD Apr 16, 2020 12:45
--- NOTE | 2020-04-16 13:07 | Brief Operative Note ---
Immediate Post Operative Note Operative Note Pre-op Diagnosis: acute cholecystitis Procedure: lap [place] Post-op Diagnosis: same as pre-op Surgeon: harrison Anesthesiologist: aleta Anesthesia: general, local Specimen: yes Complications: none Condition: stable Fluids: see Estimated Blood Loss: minimal Drains: none Implant(s) used?: No Eliseo De Jesus Apr 16, 2020 13:07
[2020-04-16] MEDS ORDERED: Sennosides 8.6mg tab ORAL PRN (13:15)
[2020-04-16] MEDS ORDERED: Milk of Magnesia 30ml Ud ORAL PRN (13:15)
--- NOTE | 2020-04-16 13:19 | Immediate Post-Op Evaluation ---
Immediate Post-Op Evalulation Immediate Post-Op Evalulation Procedure: Laparoscopic cholecystectomy Date of Evaluation: Apr 16, 2020 Time of Evaluation: 13:18 IV Fluids: 1000 Blood Products: none Estimated Blood Loss: 50 Urinary Output: none Blood Pressure Systolic: 152 Blood Pressure Diastolic: 96 Pulse Rate: 88 Respiratory Rate: 22 O2 Sat by Pulse Oximetry: 99 Temperature (Fahrenheit): 97.9 Pain Score (1-10): 1 Nausea: No Vomiting: No Complications none Patient Status: reacts, patent, extubated, none Hydration Status: adequate Venkata Stark MD Apr 16, 2020 13:19
--- NOTE | 2020-04-16 13:55 | General Progress Note ---
Subjective ROS Limited/Unobtainable: Yes Allergies: Coded Allergies: PENICILLINS (Verified Allergy, Unknown, 04/24/19) Objective Last 24 Hour Vital Signs Date Time Temp Pulse Resp B/P (MAP) Pulse Ox O2 Delivery O2 Flow Rate FiO2 04/16/20 13:45 80 19 131/81 100 Room Air 04/16/20 13:30 92 20 131/87 100 Simple Mask 6.0 04/16/20 13:21 87 19 152/92 100 Simple Mask 6.0 04/16/20 13:19 88 22 99 04/16/20 13:16 89 20 140/100 100 Simple Mask 6.0 04/16/20 13:11 99.5 92 22 142/92 100 Simple Mask 6.0 04/16/20 09:00 Room Air 04/16/20 08:00 98.3 74 18 157/94 (115) 99 04/16/20 06:13 Room Air 04/16/20 05:25 97.8 77 16 146/82 100 Room Air 04/16/20 05:20 98.6 76 18 158/96 (116) 99 04/16/20 05:06 97.7 78 16 146/88 100 Room Air 04/16/20 04:30 97.5 74 16 146/83 100 Room Air 04/16/20 03:59 97.7 04/16/20 03:30 97.6 76 18 147/81 100 Room Air 04/16/20 02:55 97.7 84 16 158/94 100 Room Air 04/16/20 01:24 97.8 04/16/20 01:16 97.8 73 18 155/90 100 Room Air 04/15/20 23:47 97.9 76 18 153/84 99 Room Air 04/15/20 23:47 73 18 Room Air 04/15/20 23:42 97.9 73 18 158/97 (117) 99 Room Air Intake and Output 04/15/20 04/16/20 19:00 07:00 Intake Total 255 ml Balance 255 ml Intake Oral 100 ml IV Total 155 ml Laboratory Tests 04/15/20 23:55: White Blood Count 9.4, Red Blood Count 5.20, Hemoglobin 14.6, Hematocrit 44.1, Mean Corpuscular Volume 85, Mean Corpuscular Hemoglobin 28.1, Mean Corpuscular Hemoglobin Concent 33.1, Red Cell Distribution Width 18.8H, Platelet Count 258, Mean Platelet Volume 7.7, Neutrophils (%) (Auto) 77.4H, Lymphocytes (%) (Auto) 16.4L, Monocytes (%) (Auto) 4.6, Eosinophils (%) (Auto) 0.8, Basophils (%) (Auto) 0.9, Sodium Level 139, Potassium Level 2.8L, Chloride Level 99, Carbon Dioxide Level 27, Anion Gap 13, Blood Urea Nitrogen 10, Creatinine 1.0, Estimat Glomerular Filtration Rate 59.7, Glucose Level 138H, Calcium Level 9.1, Total Bilirubin 0.3, Aspartate Amino Transf (AST/SGOT) 18, Alanine Aminotransferase (ALT/SGPT) 21, Alkaline Phosphatase 51, Total Protein 9.2H, Albumin 4.6, Glob ulin 4.6, Albumin/Globulin Ratio 1.0, Lipase 237 04/16/20 00:20: Urine Color Red, Urine Appearance Cloudy, Urine pH 8, Urine Specific [place] 1.010, Urine Protein 3+H, Urine Glucose (UA) 2+H, Urine Ketones 3+H, Urine Blood 5+H, Urine Nitrite Negative, Urine Bilirubin Negative, Urine Urobilinogen Normal, Urine Leukocyte Esterase 2+H, Urine RBC TntcH, Urine WBC 5-10H, Urine Squamous Epithelial Cells Few, Urine Bacteria Few Height (Feet): 5 Height (Inches): 0.00 Weight (Pounds): 145 General Appearance: alert EENT: normal ENT inspection Neck: supple Cardiovascular: normal rate Respiratory/Chest: decreased breath sounds Abdomen: normal bowel sounds, non tender, soft Extremities: non-tender Assessment/Plan Problem List: (1) Cholecystitis ICD Codes: K81.9 - Cholecystitis, unspecified SNOMED: 81461305 (2) Gastritis ICD Codes: K29.70 - Gastritis, unspecified, without bleeding SNOMED: 2750422 Assessment/Plan: abx pending surg for today will fu post op Bhargav Cummins MD Apr 16, 2020 13:55
--- NOTE | 2020-04-16 14:15 | Operative Note - Dictated ---
DATE OF OPERATION: 04/16/2020 PREOPERATIVE DIAGNOSIS: Acute cholecystitis. POSTOPERATIVE DIAGNOSIS: Acute cholecystitis. OPERATION PERFORMED: Laparoscopic cholecystectomy. ATTENDING SURGEON: Eliseo De Jesus MD. OIL FIELD OPERATOR: None. ANESTHESIOLOGIST: Venkata Stark MD. ANESTHESIA: General GETA plus local. ESTIMATED BLOOD LOSS: Minimal. IV FLUIDS: Please see anesthesia records. COMPLICATIONS: None. DRAINS: None. COUNTS: Sponge and needle counts correct x2. WOUND CLASSIFICATION: Class III. SPECIMEN: Gallbladder containing stones sent to pathology for review. ANTIBIOTICS: The patient on IV antibiotics for acute active infectious process. INDICATIONS FOR PROCEDURE: This is a 45-year-old female who presented to [facility] complaining of worsening epigastric right upper quadrant abdominal pain with nausea, vomiting, radiation to the back. The patient states that approximately 2 weeks ago she began to notice some discomfort in the right upper quadrant epigastric region. Last week, she had an acute episode which resolved without intervention after few hours indicative of cholecystitis, biliary colic. She had been well since but still feeling some cramping until yesterday where she had some fluid and began to have acute severe sharp pain that would not resolve and came to the emergency room for evaluation at which time identified to have normal labs but positive Rodriguez sign and ultrasound and CT scan consistent with acute cholecystitis, considerations for potential common duct obstruction given some dilatation. An MRCP was performed, which identified and consistent with pericholecystic fluid, cholecystitis, but clear biliary tract. Surgery was indicated and recommended. Risks, benefits, and alternatives discussed with the patient in detail who expressed understanding and consented to surgery. OPERATIVE NOTE: The patient was taken to the operating room and placed on the operating table in the supine position with bilateral arms out. All bony prominences were well padded. SCDs placed. Preoperative time-out taken identifying the patient, procedure, operative staff, and surgical staff. General anesthesia was induced. The patient was intubated. The abdomen was clipped, prepped, and draped in standard surgical fashion. An infraumbilical incision was made and carried down to the fascia, which was elevated and incised and entry into the abdomen obtained using the open Zander technique. A 12 mm Zander trocar was inserted. The abdomen was insufflated to 12 to 15 mmHg. The patient tolerated the insufflation well. Laparoscope was inserted and the abdomen was inspected. No injury from initial trocar placement identified. There was dense omental adhesions to the gallbladder identified with thickening of the gallbladder and clearly identifiable acute cholecystitis with distended gallbladder. Secondary trocars placed under direct visualization beginning with 12 mm subxiphoid followed by two 5 mm right subcostal. The patient then placed in reverse Trendelenburg, left-side down position. The gallbladder could not be grasped given how distended it was and required decompression. A laparoscopic needle was used and the gallbladder was decompressed. Dark black bilious bile was evacuated, no pus. The gallbladder was grasped at the dome using most lateral port and retracted over the liver. The omental adhesions gently dissected out with electrocautery and blunt dissection as necessary. There was an peritoneal inflammation and pericholecystic inflammation consistent with cholecystitis around the infundibulum and remainder of the gallbladder. The infundibulum was slowly gently dissected out until the critical view was obtained identifying two structures, one cystic duct entering directly into the infundibulum to the cystic artery. The cystic artery was doubly clipped and divided. Good hemostasis identified and pulsation of the artery was noted once it was clipped with small lumen. The only remaining structure entering the gallbladder was the cystic duct. Cystic duct was doubly clipped and divided and no leakage of bile identified and clearly identifiable ductal structure noted. The gallbladder was taken off the liver bed using electrocautery and placed in endoscopic retrieval bag and removed from the abdomen using the umbilical trocar site. Following this, right upper quadrant was evaluated, irrigated, suctioned, and noted to be hemostatic without leakage of bowel without any complications or abnormalities. Clips noted to be in appropriate position without complication. Surgicel was left in the liver base. At this time, we began the conclusion of our procedure. Secondary trocars removed under direct visualization followed by the umbilical trocar site. The abdomen was desufflated. The umbilical trocar site fascia was reapproximated using [id number] #0 Vicryl sutures. Skin incisions were approximated using 4-0 Monocryl subcuticular interrupted sutures. Skin glue and Steri-Strips were applied. Local anesthetic was infiltrated throughout the procedure for patient's comfort. The patient tolerated the procedure well, was extubated and taken to postanesthetic care unit in stable condition. Eliseo Jessica De Jesus DR: Zenaida JOB#: [id number] CC:
[2020-04-16] MEDS ORDERED: Tubing IV Secondary IV ONE (16:26)
[2020-04-16] MEDS ORDERED: NS 275ml ONE (16:26)
[2020-04-16] MEDS ORDERED: Chloraseptic Spray 20mL Bottle ORAL PRN (17:30)
[2020-04-16] MEDS: Docusate 100mg cap ORAL SCH (18:04)
[2020-04-17] VITALS: BP 131/82
[2020-04-17 04:00] VITALS: BP 128/79
[2020-04-17 06:31] LABS: BASOPHILS % (AUTO) 0.6 % (0.0-2.0); EOSINOPHILS % (AUTO) 0.3 % (0.0-3.0); HEMOGLOBIN 12.1 G/DL (12.0-16.0); LYMPHOCYTES % (AUTO) 17.5 % (20.0-45.0); MEAN CORPUSCULAR VOLUME 85 FL (80-99); MONOCYTES % (AUTO) 8.1 % (1.0-10.0); NEUTROPHILS % (AUTO) 73.5 % (45.0-75.0); PLATELET COUNT 191 K/UL (150-450); RED BLOOD COUNT 4.24 M/UL (4.20-5.40); RED CELL DISTRIBUTION WIDTH 18.7 % (11.6-14.8); WHITE BLOOD COUNT 8.2 K/UL (4.8-10.8)
[2020-04-17 06:51] LABS: BLOOD UREA NITROGEN 6 mg/dL (7-18); CALCIUM 7.9 MG/DL (8.5-10.1); CARBON DIOXIDE 25 MMOL/L (21-32); CHLORIDE 105 MMOL/L (98-107); POTASSIUM 3.8 MMOL/L (3.5-5.1); SODIUM 137 MMOL/L (136-145)
[2020-04-17 08:00] VITALS: BP 148/83
[2020-04-17] MEDS: Cefepime HCl 1 GM in D5W 55 ML IVPB SCH (08:11)
[2020-04-17] MEDS: Docusate 100mg cap ORAL SCH (08:11)
--- NOTE | 2020-04-17 09:23 | General Progress Note ---
Subjective ROS Limited/Unobtainable: Yes Allergies: Coded Allergies: PENICILLINS (Verified Allergy, Unknown, 04/24/19) Objective Last 24 Hour Vital Signs Date Time Temp Pulse Resp B/P (MAP) Pulse Ox O2 Delivery O2 Flow Rate FiO2 04/17/20 08:59 Room Air 04/17/20 04:00 98.3 74 18 128/79 (95) 96 04/17/20 00:00 98.1 78 18 131/82 (98) 97 04/16/20 21:00 Room Air 04/16/20 20:00 98.0 78 18 129/81 (97) 98 04/16/20 16:00 98.7 72 18 136/83 (100) 99 04/16/20 15:00 98.5 90 18 120/83 (95) 99 04/16/20 14:30 98.3 93 18 124/81 (95) 99 04/16/20 14:00 99.0 84 20 135/85 99 Room Air 04/16/20 13:45 80 19 131/81 100 Room Air 04/16/20 13:30 92 20 131/87 100 Simple Mask 6.0 04/16/20 13:21 87 19 152/92 100 Simple Mask 6.0 04/16/20 13:19 88 22 99 04/16/20 13:16 89 20 140/100 100 Simple Mask 6.0 04/16/20 13:11 99.5 92 22 142/92 100 Simple Mask 6.0 Intake and Output 04/16/20 04/17/20 19:00 07:00 Intake Total 800 ml 300 ml Balance 800 ml 300 ml Intake Oral 300 ml IV Total 800 ml # Voids 3 Laboratory Tests 04/17/20 04:50: White Blood Count 8.2, Red Blood Count 4.24, Hemoglobin 12.1, Hematocrit 36.0L, Mean Corpuscular Volume 85, Mean Corpuscular Hemoglobin 28.5, Mean Corpuscular Hemoglobin Concent 33.6, Red Cell Distribution Width 18.7H, Platelet Count 191, Mean Platelet Volume 8.0, Neutrophils (%) (Auto) 73.5, Lymphocytes (%) (Auto) 17.5L, Monocytes (%) (Auto) 8.1, Eosinophils (%) (Auto) 0.3, Basophils (%) (Auto) 0.6, Sodium Level 137, Potassium Level 3.8, Chloride Level 105, Carbon Dioxide Level 25, Blood Urea Nitrogen 6L, Creatinine 1.0, Estimat Glomerular Filtration Rate 59.7, Glucose Level 106, Calcium Level 7.9L Height (Feet): 5 Height (Inches): 0.00 Weight (Pounds): 145 General Appearance: alert EENT: normal ENT inspection Neck: supple Cardiovascular: normal rate Respiratory/Chest: lungs clear Abdomen: hypoactive bowel sounds, tender Extremities: non-tender Assessment/Plan Problem List: (1) Cholecystitis ICD Codes: K81.9 - Cholecystitis, unspecified SNOMED: 17151956 (2) Gastritis ICD Codes: K29.70 - Gastritis, unspecified, without bleeding SNOMED: 3020280 Assessment/Plan: s/p surg POD #1 ivf pain contol fu surg recs Bhargav Cummins MD Apr 17, 2020 09:23
[2020-04-17 11:56] VITALS: BP 132/89
--- NOTE | 2020-04-17 12:50 | 48 Hour Post Anesthesia Eval ---
Post Anesthesia Evaluation Procedure: Laparoscopic cholecystectomy Date of Evaluation: Apr 17, 2020 Time of Evaluation: 12:49 Blood Pressure Systolic: 136 0: 72 Pulse Rate: 68 Respiratory Rate: 20 Temperature (Fahrenheit): 97.6 O2 Sat by Pulse Oximetry: 98 Airway: patent Nausea: No Vomiting: No Pain Intensity: 2 Hydration Status: adequate Cardiopulmonary Status: stable Mental Status/LOC: patient returned to baseline Follow-up Care/Observations: n/a Post-Anesthesia Complications: none Follow-up care needed: ready to discharge Venkata Stark MD Apr 17, 2020 12:50
[2020-04-17 16:00] VITALS: BP 130/80
--- NOTE | 2020-04-17 19:15 | Consultation ---
DATE OF CONSULTATION: 04/17/2020 INFECTIOUS DISEASE CONSULTATION This consult is for coverage of Dr. Lau. CONSULTING PHYSICIAN: Alex Soler MD PRIMARY ATTENDING: Robinson Golden MD REASON FOR CONSULTATION: Acute cholecystitis. HISTORY OF PRESENT ILLNESS: This is a 45-year-old female admitted on 04/16/2020 from home complaining of epigastric right upper abdominal pain. Also had nausea, vomiting. Patient was diagnosed with acute cholecystitis and had laparoscopic cholecystectomy yesterday. PAST MEDICAL HISTORY: Hypertension. Has gallstone diagnosed 2 months ago on abdominal ultrasound. ALLERGIES: Allergic to penicillin. MEDICATIONS: Getting diphenhydramine, Tylenol, temazepam, Senokot, Zofran, Tylenol, morphine, cefepime, Flagyl, and Tylenol. SOCIAL HISTORY: . No smoking. No drug abuse. Social drinking. Originally from [facility]. REVIEW OF SYSTEMS: No fever. No chills. Occasional cough. No nausea. No vomiting, but has mild right upper quadrant pain with movement. Has no bowel movement since surgery. No dysuria. PHYSICAL EXAMINATION: VITAL SIGNS: Temperature is 98.6, pulse 68, blood pressure is 132/89. GENERAL APPEARANCE: Well developed, in no acute distress. HEAD AND NECK: [place] conjunctivae. HEART: Normal rate. LUNGS: Clear. ABDOMEN: Soft. EXTREMITIES: Has no edema. NEUROLOGIC: She is awake, alert, oriented x3. LABORATORY AND DIAGNOSTIC DATA: COVID test was negative. WBC 8.2, hemoglobin 12.1, hematocrit 36, platelets is 191. Sodium 137, potassium 3.8, potassium at the time of admission was 2.8, BUN 6, creatinine 1, chloride 105, bicarb 25. LFTs were within normal limits. Total protein was high 9.2. MRI of abdomen showed cholelithiasis. There is evidence of acute cholecystitis. Chest x-ray was negative. IMPRESSION: Acute calculous cholecystitis, status post laparoscopic cholecystectomy. Has hypertension, penicillin allergy, and hypokalemia that is corrected. RECOMMENDATION: Continue antibiotic perioperatively in the hospital. Can be discharged to home without any antibiotic. At the end of my exam, I thank Dr. Golden, for involving me in the care of this patient. Alex Soler M.D. DR: MICHAEL JOB#: [id number] CC: LATONIA
--- NOTE | 2020-04-17 23:00 | Discharge Summary ---
DATE OF ADMISSION: 04/16/2020 DATE OF DISCHARGE: 04/17/2020 PERTINENT HISTORY: The patient presents with epigastric pain, some nausea and vomiting. Imaging and clinical exam were consistent with acute cholecystitis. Pertinent physical findings, abdomen with mild epigastric pain. No rebound. COURSE IN THE HOSPITAL: The patient underwent surgery by Dr. Eliseo De Jesus for laparoscopic cholecystectomy. The surgery went uneventful. There is no evidence of common duct stones. The patient received empiric antibiotics perioperative. She did well, was able to tolerate a diet. No nausea or vomiting. On the day of discharge, her lungs are clear. Heart, regular rhythm. Abdomen is soft with minimal incisional tenderness. She was discharged home in stable condition. FINAL DIAGNOSES: 1. Acute cholecystitis. 2. History of gastritis. 3. Borderline hypertension. DISCHARGE DISPOSITION: Home on omeprazole 20 mg daily, [place] as needed, DSS as needed were given to her by Dr. De Jesus. FOLLOWUP: Followup in the office with Dr. Golden and Dr. De Jesus. Robinson Golden M.D. DR: Veronika JOB#: [id number] CC:
== END 2020-04-17 17:15 | disposition home or self-care (01) | DRG 419 ==
LOC: EMR 23:59 → 3E 04-16 03:25 → EDBEDREQ 04-16 04:51
PROC: 0FT44ZZ Resection of Gallbladder, Percutaneous Endoscopic Approach (ICD-10-PCS; principal; 2020-04-16 12:00)
DX: K80.00 Calculus of gallbladder with acute cholecystitis without obstruction (principal); Z88.0 Allergy status to penicillin; I10 Essential (primary) hypertension; E87.6 Hypokalemia
CPT/HCPCS: 36415; 71045; 74177; 74181; 76705; 80048; 80053; 81003; 83690; 85025; 93005; 94003; 94150; 96365; 96367; 96375; 96376; 99285; J2250; J2405; J2710; J8499; U0002